=== PATIENT | male | born 1995 | race Caucasian/White ===

== ENCOUNTER 2018-02-08 04:09 | Observation (INO) | payer OTHER, SELFPAY ==
[2018-02-08] VITALS (13 sets, daily range): BP systolic 103–134; BP diastolic 60–72; PULSE 80–110; RESP 16–25; TEMP 36.7–38.1; O2SAT 95–100; BMI 23.0
--- NOTE | 2018-02-08 04:23 | DI.RAD.S_ITS ---
PROCEDURE: XR ACUTE ABDOMEN SERIES INDICATIONS: chest pain, vomiting, abdominal pain TECHNIQUE: One view chest and two views of the abdomen were acquired. COMPARISON: [facility], CT, CT ANGIO CHEST PE PROTOCOL, 02/08/2018, 5:20. [facility], RG, XR CXR 2V, 01/28/2000, 10:15. FINDINGS: Surgical changes and devices: None. Chest: Lungs are clear. Heart size is normal. No pleural effusions. No pneumoperitoneum. Abdomen: Moderate amount of stool in colon. There are a few air-fluid levels in the right lower quadrant. No suspicious calcifications. Visualized solid organ contours appear normal. Bones: No suspicious bony lesions. IMPRESSION: Nonspecific bowel gas pattern. Dictated by: Mauri Cho M.D. on 02/08/2018 at 9:19 Approved by: Mauri Cho M.D. on 02/08/2018 at 9:21
[2018-02-08] MEDS: SODIUM CHLORIDE 0.9% 1,000 ML 1000 ML IV ×2 (04:31→05:52)
[2018-02-08] MEDS: ONDANSETRON 4 MG/2 ML INJ IV (04:31)
--- NOTE | 2018-02-08 04:32 | ED_ITS ---
HPI - Abdominal Pain General Chief Complaint: Abdominal Pain Stated Complaint: nausea/vomiting/fast heart rate feels confused Time Seen by Provider: 02/08/18 04:13 Source: patient and family (mother) Mode of arrival: ambulatory Limitations: no limitations History of Present Illness HPI narrative: This is a 22-year-old male who comes to the emergency department with complaint of chest pain, abdominal pain and vomiting. Patient states that he was working at the gym earlier today. He felt a little bit discomfort in his abdomen after lifting some weights and doing squats. He felt a little bit dizzy. Patient states that Um then this evening they had dinner and then later he started feeling very nauseated, he started vomiting. And is also complaining of some chest pain. Patient states he also feels a little bit short of breath. He states he has felt sweaty. He has not had any fevers recently. He has not had any diarrhea or constipation and has had normal bowel movements. Has not had any changes in urination. He states that he did his normal workout in the gym and did not do anything different or vastly increased in amount of work out. He is visiting his family from college states that it is about an hour and half drive. He states that he is again for the last several months and had not had any dairy or meet until about 3 or 4 days ago and has been drinking and eating that regularly since back home. Patient denies any tobacco, he states occasionally drinks alcohol but none for several months. He states that he does not use any illicit. Denies any sick contacts. Related Data Home Medications Medication Instructions Recorded Confirmed MULTIVITAMIN (FAMILY TABS) 1 tab PO DAILY #0 05/20/11 02/08/18 Fish Oil 2 tab DAILY 02/08/18 02/08/18 Allergies Allergy/AdvReac Type Severity Reaction Status Date / Time amoxicillin [AMOXICILLIN] Allergy Mild Diarrhea/Vo Verified 02/08/18 15:39 miting Review of Systems Review of Systems All systems reviewed & are unremarkable except as noted in HPI and below Constitutional Denies chills, Denies fever(s), Denies headache(s), Denies lethargy, Reports malaise and Denies weakness ENT Ears, Nose, Mouth, and Throat: Denies headache(s) Cardiovascular Reports chest pain, Reports diaphoresis, Denies syncope, Denies pedal edema, Denies irregular heart rhythm, Denies leg edema, Reports lightheadedness, Denies palpitations, Reports dyspnea and Denies orthopnea Respiratory Denies change in phlegm color, Denies chest congestion, Denies cough, Denies excessive phlegm production, Reports dyspnea and Denies wheezing Gastrointestinal Gastrointestinal: Reports abdominal pain, Denies change in bowel habits, Denies diarrhea, Reports nausea, Reports vomiting and Denies hematemesis Genitourinary Denies hematuria, Denies dysuria, Denies flank pain, Denies urinary incontinence and Denies urinary urgency Musculoskeletal Reports back pain (Mild, typical from work out.), Reports muscle cramps, Denies muscle weakness, Denies numbness, Denies tingling and Reports other (Leg also has painful from work out) Integumentary/Breasts Denies rash Neurologic Denies syncope, Denies headache(s), Denies numbness, Denies tingling and Denies weakness Endocrine Denies palpitations Allergic/Immunologic Denies wheezing PFSH Social History household members: family and other Smoking Status: Never smoker alcohol intake: current substance use type: does not use Exam Narrative Exam Narrative: GEN: well nourished, well appearing male, alert and oriented x 3 , patient appears to be in moderate distress. Patient began actively vomiting in the room. HEENT: Atraumatic, pupils are equal round reactive to light, extraocular movements are intact, nares are clear, TMs are clear with no fluid, there is no conjunctival pallor. Throat is clear without any exudates, erythema, tonsillar enlargement or uvular deviation HEART: Slightly tachycardic but regular rate and rhythm without murmur, clicks , rubs. No carotid bruits, pulses are equal in upper and lower extremities LUNGS:Lungs clear to auscultation, no wheezes, rales, crackles, chest moves symmetrically, no tachypnea, no accessory muscle use. ABD:bowel sounds normal, soft, non-tender, no guarding, rebound, rigidity, no masses noted, no hepatosplenomegaly :No CVA tenderness MSCL: Non-tender, no muscle atrophy, muscles strength 5/5 upper and lower extremities, full range of motion, normal gait NEURO:CN 2-12 intact, sensation normal, Initial Vital Signs Initial Vital Signs: Vital Signs Temperature 98.1 F 02/08/18 04:21 Pulse Rate 104 H 02/08/18 04:21 Respiratory Rate 20 02/08/18 04:21 Blood Pressure 125/72 02/08/18 04:21 Pulse Oximetry 98 02/08/18 04:21 Course Orders Ordered: ED Orders 02/08/18 13:12 GI Panel Routine 02/08/18 13:45 Respiratory Panel Stat Acetaminophen (Tylenol) 650 mg PO Q6HR PRN PRN Reason: As Needed for Fever/Mild Pain Last Admin: 02/08/18 13:21 Dose: 650 mg Enoxaparin Sodium (Lovenox) 40 mg SUBCUT DAILY ABHISHEK Sodium Chloride (Normal Saline 0.9%) 1,000 mls @ 100 mls/hr IV CONT ABHISHEK Last Admin: 02/08/18 13:00 Dose: 100 mls/hr Ondansetron HCl (Zofran Odt) 4 mg PO Q8HR PRN PRN Reason: Nausea And Vomiting Last Admin: 02/08/18 13:21 Dose: 4 mg Discontinued Medications Acetaminophen (Tylenol) 975 mg PO NOW ONE Stop: 02/08/18 05:54 Last Admin: 02/08/18 05:55 Dose: 975 mg Sodium Chloride (Normal Saline 0.9%) 1,000 mls @ 1,000 mls/hr IV BOLUS ONE Stop: 02/08/18 05:22 Last Infusion: 02/08/18 05:38 Dose: 0 mls/hr Admin: 02/08/18 04:31 Dose: 1,000 mls/hr Sodium Chloride (Normal Saline 0.9%) 500 mls @ 1,000 mls/hr IV BOLUS ONE Stop: 02/08/18 05:47 Last Admin: 02/08/18 06:52 Dose: Sodium Chloride (Normal Saline 0.9%) 1,000 mls @ 1,000 mls/hr IV BOLUS ONE Stop: 02/08/18 06:26 Last Infusion: 02/08/18 06:37 Dose: 0 mls/hr Admin: 02/08/18 05:52 Dose: 1,000 mls/hr Sodium Chloride (Normal Saline 0.9%) 1,000 mls @ 500 mls/hr IV BOLUS ONE Stop: 02/08/18 08:48 Last Infusion: 02/08/18 07:58 Dose: 0 mls/hr Admin: 02/08/18 06:52 Dose: 500 mls/hr Sodium Chloride (Normal Saline 0.45%) 1,000 mls @ 100 mls/hr IV CONT ABHISHEK Last Admin: 02/08/18 10:15 Dose: 100 mls/hr Morphine Sulfate (Morphine) 4 mg IV NOW ONE Stop: 02/08/18 05:19 Last Admin: 02/08/18 05:52 Dose: 4 mg Ondansetron HCl (Zofran) 4 mg IV NOW ONE Stop: 02/08/18 04:24 Last Admin: 02/08/18 04:31 Dose: 4 mg Vital Signs - 8 hr 02/08/18 13:00 02/08/18 15:00 02/08/18 16:08 Temperature 99.3 F 99.6 F Pulse Rate 96 H 91 H Respiratory Rate 18 18 Blood Pressure 124/60 114/62 Pulse Oximetry 100 99 96 MDM - Abdominal Pain Lab Data Attestation: I reviewed the patient's lab results. Result diagrams: 02/08/18 04:26 02/08/18 04:26 Lab Results 02/08/18 02/08/18 02/08/18 Range/Units 04:26 04:26 04:26 WBC 16.1 H (4.5-11.0) X10^3/uL RBC 5.63 (4.5-5.9) X10^6/uL Hgb 17.3 (13.5-17.5) g/dL Hct 50.2 (41-53) % MCV 89.2 (80-100) fL MCH 30.6 (26-34) PG MCHC 34.4 (30-36) % RDW 12.7 (11.6-14.8) % Plt Count 171 (150-400) X10^3/uL Neut % (Auto) 88.4 H (50-75) % Lymph % (Auto) 7.0 L (25-40) % [place] % (Auto) 4.0 (3-14) % Eos % (Auto) 0.4 L (2-4) % Baso % (Auto) 0.2 (0-2) % Neut # (Auto) 52004 H (3278-1422) /uL PT 11.5 (10.1-12.7) SECONDS INR 1.0 (0.9-1.3) APTT 27 (26.4-36.2) SECONDS D-Dimer 278 H (<230) ng/mL Sodium 141 (137-145) mmol/L Potassium 3.6 (3.4-5.1) mmol/L Chloride 99 (98-107) mmol/L Carbon Dioxide 27 (22-32) mmol/L BUN 22 H (9-20) mg/dL Creatinine 1.10 (0.66-1.25) mg/dL Estimated GFR > 60.0 (>60) mL/min BUN/Creatinine Ratio 20.0 (6-22) Glucose 127 H (70-100) mg/dL Lactate (0.7-2.1) mmol/L Calcium 9.7 (8.4-10.2) mg/dL Magnesium 1.9 (1.6-2.3) mg/dL Total Bilirubin 0.7 (0.2-1.3) mg/dL AST 43 (17-59) IU/L ALT 52 (21-72) IU/L Alkaline Phosphatase 87 (38-126) U/L Total Creatine Kinase 512 H (55-170) U/L CK-MB (CK-2) 4.45 H (<2.37) ng/mL CK-MB (CK-2) Rel Index 0.9 L (1.5-5.0) % Troponin I < 0.012 (0.01-0.034) ng/mL Total Protein 8.1 (6.3-8.2) g/dL Albumin 5.1 H (3.5-5.0) g/dL Globulin 3.0 (1.7-4.1) g/dL Albumin/Globulin Ratio 1.7 (1.0-2.8) Lipase 57 (23-300) U/L Stl C. cayetanensis PCR (Not Detect) Stool Rotavirus (PCR) (Not Detect) Stool Adenovirus (PCR) (Not Detect) Stool Astrovirus (PCR) (Not Detect) Stool Cryptosporidium PCR (Not Detect) Stl E.coli Shiga Tox PCR (Not Detect) St Sh/Enteroin Ecoli PCR (Not Detect) Stool E coli O157 PCR (Not Detect) Stl Enterotoxigenic E PCR (Not Detect) Stool EPEC (PCR) (Not Detect) Stl E. histolytica PCR (Not Detect) Stool Giardia Lamblia PCR (Not Detect) Stool Sapovirus (PCR) (Not Detect) Stl P. shigelloides PCR (Not Detect) St Y.enterocolitica PCR (Not Detect) Stool Vibrio (PCR) (Not Detect) Stl Vibrio cholerae PCR (Not Detect) Stl Enteroaggr Ecoli PCR (Not Detect) Stl Norovirus GI/GII PCR (Not Detect) Urine Opiates Screen (Negative) Ur Oxycodone Screen (Negative) Urine Methadone Screen (Negative) Ur Barbiturates Screen (Negative) U Tricyclic Antidepress (Negative) Ur Phencyclidine Scrn (Negative) Ur Amphetamines Screen (Negative) U Methamphetamines Scrn (Negative) Ur MDMA Scrn (Ecstasy) (Negative) U Benzodiazepines Scrn (Negative) Urine Cocaine Screen (Negative) U Marijuana (THC) Screen (Negative) Chlamy pneumoniae PCR (Not Detect) Adenovirus (PCR) (Not Detect) B.parapertussis DNA PCR (Not Detect) Campylobacter (PCR) (Not Detect) C. difficile Tox (PCR) (Not Detect) Coronavirus OC43 (PCR) (Not Detect) Coronavirus HKU1 (PCR) (Not Detect) Coronavirus 229E (PCR) (Not Detect) Coronavirus NL63 (PCR) (Not Detect) Human Metapneumovir PCR (Not Detect) Influenza Type A (PCR) (Not Detect) Influenza Type B (PCR) (Not Detect) Influenza A & B (PCR) (Negative) M. pneumoniae (PCR) (Not Detect) Parainfluenza 1 (PCR) (Not Detect) Parainfluenza 2 (PCR) (Not Detect) Parainfluenza 3 (PCR) (Not Detect) Parainfluenza 4 (PCR) (Not Detect) RSV (PCR) (Not Detect) Entero/Rhino (PCR) (Not Detect) Salmonella (PCR) (Not Detect) 02/08/18 02/08/18 02/08/18 Range/Units 04:30 05:23 05:55 WBC (4.5-11.0) X10^3/uL RBC (4.5-5.9) X10^6/uL Hgb (13.5-17.5) g/dL Hct (41-53) % MCV (80-100) fL MCH (26-34) PG MCHC (30-36) % RDW (11.6-14.8) % Plt Count (150-400) X10^3/uL Neut % (Auto) (50-75) % Lymph % (Auto) (25-40) % [place] % (Auto) (3-14) % Eos % (Auto) (2-4) % Baso % (Auto) (0-2) % Neut # (Auto) (2267-1672) /uL PT (10.1-12.7) SECONDS INR (0.9-1.3) APTT (26.4-36.2) SECONDS D-Dimer (<230) ng/mL Sodium (137-145) mmol/L Potassium (3.4-5.1) mmol/L Chloride (98-107) mmol/L Carbon Dioxide (22-32) mmol/L BUN (9-20) mg/dL Creatinine (0.66-1.25) mg/dL Estimated GFR (>60) mL/min BUN/Creatinine Ratio (6-22) Glucose (70-100) mg/dL Lactate 1.6 (0.7-2.1) mmol/L Calcium (8.4-10.2) mg/dL Magnesium (1.6-2.3) mg/dL Total Bilirubin (0.2-1.3) mg/dL AST (17-59) IU/L ALT (21-72) IU/L Alkaline Phosphatase (38-126) U/L Total Creatine Kinase (55-170) U/L CK-MB (CK-2) (<2.37) ng/mL CK-MB (CK-2) Rel Index (1.5-5.0) % Troponin I (0.01-0.034) ng/mL Total Protein (6.3-8.2) g/dL Albumin (3.5-5.0) g/dL Globulin (1.7-4.1) g/dL Albumin/Globulin Ratio (1.0-2.8) Lipase (23-300) U/L Stl C. cayetanensis PCR (Not Detect) Stool Rotavirus (PCR) (Not Detect) Stool Adenovirus (PCR) (Not Detect) Stool Astrovirus (PCR) (Not Detect) Stool Cryptosporidium PCR (Not Detect) Stl E.coli Shiga Tox PCR (Not Detect) St Sh/Enteroin Ecoli PCR (Not Detect) Stool E coli O157 PCR (Not Detect) Stl Enterotoxigenic E PCR (Not Detect) Stool EPEC (PCR) (Not Detect) Stl E. histolytica PCR (Not Detect) Stool Giardia Lamblia PCR (Not Detect) Stool Sapovirus (PCR) (Not Detect) Stl P. shigelloides PCR (Not Detect) St Y.enterocolitica PCR (Not Detect) Stool Vibrio (PCR) (Not Detect) Stl Vibrio cholerae PCR (Not Detect) Stl Enteroaggr Ecoli PCR (Not Detect) Stl Norovirus GI/GII PCR (Not Detect) Urine Opiates Screen Negative (Negative) Ur Oxycodone Screen Negative (Negative) Urine Methadone Screen Negative (Negative) Ur Barbiturates Screen Negative (Negative) U Tricyclic Antidepress Negative (Negative) Ur Phencyclidine Scrn Negative (Negative) Ur Amphetamines Screen Negative (Negative) U Methamphetamines Scrn Negative (Negative) Ur MDMA Scrn (Ecstasy) Negative (Negative) U Benzodiazepines Scrn Negative (Negative) Urine Cocaine Screen Negative (Negative) U Marijuana (THC) Screen Negative (Negative) Chlamy pneumoniae PCR (Not Detect) Adenovirus (PCR) (Not Detect) B.parapertussis DNA PCR (Not Detect) Campylobacter (PCR) (Not Detect) C. difficile Tox (PCR) (Not Detect) Coronavirus OC43 (PCR) (Not Detect) Coronavirus HKU1 (PCR) (Not Detect) Coronavirus 229E (PCR) (Not Detect) Coronavirus NL63 (PCR) (Not Detect) Human Metapneumovir PCR (Not Detect) Influenza Type A (PCR) (Not Detect) Influenza Type B (PCR) (Not Detect) Influenza A & B (PCR) Negative (Negative) M. pneumoniae (PCR) (Not Detect) Parainfluenza 1 (PCR) (Not Detect) Parainfluenza 2 (PCR) (Not Detect) Parainfluenza 3 (PCR) (Not Detect) Parainfluenza 4 (PCR) (Not Detect) RSV (PCR) (Not Detect) Entero/Rhino (PCR) (Not Detect) Salmonella (PCR) (Not Detect) 12/24/18 12/24/18 Range/Units 13:12 13:45 WBC (4.5-11.0) X10^3/uL RBC (4.5-5.9) X10^6/uL Hgb (13.5-17.5) g/dL Hct (41-53) % MCV (80-100) fL MCH (26-34) PG MCHC (30-36) % RDW (11.6-14.8) % Plt Count (150-400) X10^3/uL Neut % (Auto) (50-75) % Lymph % (Auto) (25-40) % [place] % (Auto) (3-14) % Eos % (Auto) (2-4) % Baso % (Auto) (0-2) % Neut # (Auto) (1584-3242) /uL PT (10.1-12.7) SECONDS INR (0.9-1.3) APTT (26.4-36.2) SECONDS D-Dimer (<230) ng/mL Sodium (137-145) mmol/L Potassium (3.4-5.1) mmol/L Chloride (98-107) mmol/L Carbon Dioxide (22-32) mmol/L BUN (9-20) mg/dL Creatinine (0.66-1.25) mg/dL Estimated GFR (>60) mL/min BUN/Creatinine Ratio (6-22) Glucose (70-100) mg/dL Lactate (0.7-2.1) mmol/L Calcium (8.4-10.2) mg/dL Magnesium (1.6-2.3) mg/dL Total Bilirubin (0.2-1.3) mg/dL AST (17-59) IU/L ALT (21-72) IU/L Alkaline Phosphatase (38-126) U/L Total Creatine Kinase (55-170) U/L CK-MB (CK-2) (<2.37) ng/mL CK-MB (CK-2) Rel Index (1.5-5.0) % Troponin I (0.01-0.034) ng/mL Total Protein (6.3-8.2) g/dL Albumin (3.5-5.0) g/dL Globulin (1.7-4.1) g/dL Albumin/Globulin Ratio (1.0-2.8) Lipase (23-300) U/L Stl C. cayetanensis PCR Not detected (Not Detect) Stool Rotavirus (PCR) Not detected (Not Detect) Stool Adenovirus (PCR) Not detected (Not Detect) Stool Astrovirus (PCR) Not detected (Not Detect) Stool Cryptosporidium PCR Not detected (Not Detect) Stl E.coli Shiga Tox PCR Not detected (Not Detect) St Sh/Enteroin Ecoli PCR Not detected (Not Detect) Stool E coli O157 PCR Not detected (Not Detect) Stl Enterotoxigenic E PCR Not detected (Not Detect) Stool EPEC (PCR) Not detected (Not Detect) Stl E. histolytica PCR Not detected (Not Detect) Stool Giardia Lamblia PCR Not detected (Not Detect) Stool Sapovirus (PCR) Not detected (Not Detect) Stl P. shigelloides PCR Not detected (Not Detect) St Y.enterocolitica PCR Not detected (Not Detect) Stool Vibrio (PCR) Not detected (Not Detect) Stl Vibrio cholerae PCR Not detected (Not Detect) Stl Enteroaggr Ecoli PCR Not detected (Not Detect) Stl Norovirus GI/GII PCR Detected H (Not Detect) Urine Opiates Screen (Negative) Ur Oxycodone Screen (Negative) Urine Methadone Screen (Negative) Ur Barbiturates Screen (Negative) U Tricyclic Antidepress (Negative) Ur Phencyclidine Scrn (Negative) Ur Amphetamines Screen (Negative) U Methamphetamines Scrn (Negative) Ur MDMA Scrn (Ecstasy) (Negative) U Benzodiazepines Scrn (Negative) Urine Cocaine Screen (Negative) U Marijuana (THC) Screen (Negative) Chlamy pneumoniae PCR Not detected (Not Detect) Adenovirus (PCR) Not detected (Not Detect) B.parapertussis DNA PCR Not detected (Not Detect) Campylobacter (PCR) Not detected (Not Detect) C. difficile Tox (PCR) Not detected (Not Detect) Coronavirus OC43 (PCR) Not detected (Not Detect) Coronavirus HKU1 (PCR) Not detected (Not Detect) Coronavirus 229E (PCR) Not detected (Not Detect) Coronavirus NL63 (PCR) Not detected (Not Detect) Human Metapneumovir PCR Not detected (Not Detect) Influenza Type A (PCR) Not detected (Not Detect) Influenza Type B (PCR) Not detected (Not Detect) Influenza A & B (PCR) (Negative) M. pneumoniae (PCR) Not detected (Not Detect) Parainfluenza 1 (PCR) Not detected (Not Detect) Parainfluenza 2 (PCR) Not detected (Not Detect) Parainfluenza 3 (PCR) Not detected (Not Detect) Parainfluenza 4 (PCR) Not detected (Not Detect) RSV (PCR) Not detected (Not Detect) Entero/Rhino (PCR) Not detected (Not Detect) Salmonella (PCR) Not detected (Not Detect) Point of care testing: Urine Dip Bedside Urine Glucose Negative Bedside Urine Bilirubin + 1 Bedside Urine Ketone - Negative Urine Specific [place] 1.025 Bedside Urine Occult Blood - Negative Bedside Urine pH 6.0 Bedside Urine Protein - Negative Bedside Urine Urobilinogen - Negative Bedside Urine Nitrite - Negative Bedside Urine Leukocytes - Negative Esterase Imaging Data CT PE/abd/pelvis: Radiologist's impression: No evidence of PE, no airspace disease. No aneurysm or dissection. Abdomen shows abdominal aorta is normal caliber. No evidence of colitis, no small-bowel obstruction. Multiple nondistended fluid filled loops of distal small bowel, possible mild wall thickening of multiple loops of small bowel. Appendix identified and normal. ECG Data Attestation: I personally reviewed and interpreted this ECG as follows: Prior ECG tracings: not available for review Interpretation: Sinus rhythm with a rate of 92 DE interval of 140, QRS of 86 and a QTC of 393. Patient has some nonspecific changes. MDM Narrative Medical decision making narrative: Patient continues to have some tachycardia after 1L NS, lactate, blood cultures obtained. Recheck, patient developed fever, tylenol given. Patient's fever resolved. Patient is on his 3rd L of fluid without any improvement in heart rate. Patient 's white count is 16, patient is not anemic, hemoglobin is normal. A troponin is negative although CK and CPK is elevated. Renal function in GI labs are normal. Point of care urine is negative for infection, UDS is negative. Influenza swab was ordered and is also negative. I would expect patient's heart rate did start to improve. He has not continued to have vomiting although he had an additional episode in the ED. Not had any diarrhea thus far. Spoke with Dr. Chow who is the hospitalist accepts. We discussed if he should start antibiotics. Dr. Wright will evaluate the patient 1st prior to starting antibiotics. Discharge Plan Departure Patient Disposition: Admitted as Observation Clinical Impression: Enteritis Discharge Date/Time: 02/08/18 07:59 Interventions: ED Discharge Assessment Last Done: 02/08/18 07:53 Admit Date/Time: 02/08/18 07:53 Admit Provider: Tushar Chow
[2018-02-08 04:36] LABS: Add Manual Diff / Slide Review NO; Basophils Percent Auto 0.2 % (0-2); Eosinophils Percent Auto 0.4 % (2-4); Hematocrit 50.2 % (41-53); Hemoglobin 17.3 g/dL (13.5-17.5); Mean Corpuscular HGB Conc 34.4 % (30-36); Mean Corpuscular Hemoglobin 30.6 PG (26-34); Mean Corpuscular Volume 89.2 fL (80-100); Neutrophils Absolute Auto 14300 /uL (1500-7000); Neutrophils Percent Auto 88.4 % (50-75); Platelet Count 171 X10^3/uL (150-400); Red Blood Cell Count 5.63 X10^6/uL (4.5-5.9); Red Cell Distribution Width 12.7 % (11.6-14.8); White Blood Cell Count 16.1 X10^3/uL (4.5-11.0)
[2018-02-08 04:41] LABS: Prothrombin Time 11.5 SECONDS (10.1-12.7)
[2018-02-08 04:43] LABS: Alanine Aminotransferase 52 IU/L (21-72); Albumin 5.1 g/dL (3.5-5.0); Albumin Globulin Ratio 1.7 (1.0-2.8); Alkaline Phosphatase 87 U/L (38-126); Aspartate Aminotransferase 43 IU/L (17-59); Bilirubin Total 0.7 mg/dL (0.2-1.3); Blood Urea Nitrogen 22 mg/dL (9-20); Calcium 9.7 mg/dL (8.4-10.2); Carbon Dioxide 27 mmol/L (22-32); Chloride 99 mmol/L (98-107); Creatine Kinase 512 U/L (55-170); Estimated Glomerular Filt Rate > 60.0 mL/min (>60); Glucose 127 mg/dL (70-100); HEMOLYSIS < 15 (0-50); Lipase 57 U/L (23-300); Potassium 3.6 mmol/L (3.4-5.1); Sodium 141 mmol/L (137-145); Total Protein 8.1 g/dL (6.3-8.2)
[2018-02-08 04:44] LABS: D Dimer 278 ng/mL (<230); PTT Partial Thromboplastin Tim 27 SECONDS (26.4-36.2)
[2018-02-08 04:49] LABS: Urine Amphetamines Negative (Negative); Urine Barbiturates Negative (Negative); Urine Benzodiazepines Negative (Negative); Urine Cocaine Negative (Negative); Urine MDMA Negative (Negative); Urine Methadone Negative (Negative); Urine Methamphetamines Negative (Negative); Urine Morphine/Opi cutoff 2000 Negative (Negative); Urine Oxycodone Negative (Negative); Urine Phencyclidine Negative (Negative); Urine Tetrahydrocannabinol Negative (Negative); Urine Tricyclic Antidepressant Negative (Negative)
[2018-02-08 04:56] LABS: Troponin I < 0.012 ng/mL (0.01-0.034)
[2018-02-08 04:58] LABS: CKMB % Relative Index 0.9 % (1.5-5.0); Creatine Kinase MB 4.45 ng/mL (<2.37)
--- NOTE | 2018-02-08 05:18 | DI.CT.S_ITS ---
PROCEDURE: CT ABDOMEN PELVIS W CON INDICATIONS: chest pain/abd pain, tachycardia, sob TECHNIQUE: After the administration of intravenous contrast, 5 mm thick sections acquired from the diaphragm to the symphysis. 5 mm coronal and sagittal reformats were acquired. For radiation dose reduction, the following was used: automated exposure control, adjustment of mA and/or kV according to patient size. COMPARISON: None. FINDINGS: Image quality: Excellent. ABDOMEN: Lung bases: Lung bases are clear. Heart size is normal. Solid organs: Liver is normal in size and enhancement. Gallbladder is within normal limits. Biliary system is non dilated. Pancreas enhances normally. Spleen is normal in size and enhancement. No adrenal nodules. Kidneys demonstrate normal size and enhancement, without hydronephrosis. Peritoneum and bowel: Colon loops demonstrate normal wall thickness and caliber. The fluid filled, mildly distended multiple loops of small bowel noted. Fluid-filled loops of small bowel have mild circumferential wall thickening. The appendix is not visualized. No free fluid or air. Nodes and vessels: No retroperitoneal or mesenteric adenopathy by size criteria. Aorta and inferior vena cava are normal in size. Miscellaneous: No ventral hernias. PELVIS: Genitourinary: Bladder wall thickness is normal. Miscellaneous: No inguinal hernias or adenopathy. Bones: No suspicious bony lesions. No vertebral body compression fractures. IMPRESSION: 1. Multiple, mildly distended, fluid-filled loops of small bowel concerning for enteritis. 2. The appendix is not definitely visualized. Early manifestation of appendicitis cannot be excluded. 3. No free fluid or air. Dictated by: Kristin Montenegro MD, PhD on 02/08/2018 at 7:32 Approved by: Kristin Montenegro MD, PhD on 02/08/2018 at 7:37
--- NOTE | 2018-02-08 05:18 | DI.CT.S_ITS ---
PROCEDURE: CT ANGIO CHEST PE PROTOCOL INDICATIONS: chest pain, abd, sob, tachycardia TECHNIQUE: After the administration of intravenous contrast, 2 mm thick sections acquired from the pulmonary apices to the posterior costophrenic angles. 3-dimensional maximum intensity projection (MIP) coronal and sagittal reformats were then acquired through the thorax. For radiation dose reduction, the following was used: automated exposure control, adjustment of mA and/or kV according to patient size. COMPARISON: None. FINDINGS: Image quality: Limited by patient motion artifact. Pulmonary arteries: Pulmonary arteries are normal in size, and demonstrate no intraluminal filling defects to suggest central pulmonary embolism. Lungs and pleura: Lungs are clear. No pleural effusions or pneumothorax. Central and peripheral airways are patent. Mediastinum: Heart size is normal, without pericardial effusion. No mediastinal or hilar adenopathy. Thoracic aorta is normal in caliber and enhancement. Esophagus is normal in caliber, without hiatal hernia. Bones and chest wall: No suspicious bony lesions. Ribs and thoracic spine appear intact throughout. Thyroid gland is within normal limits where visualized. No axillary or supraclavicular adenopathy. Abdomen: Visualized upper abdominal solid organs appear normal in the early arterial phase of enhancement. IMPRESSION: 1. No pulmonary embolus. 2. No lung consolidation. Dictated by: Kristin Montenegro MD, PhD on 02/08/2018 at 7:28 Approved by: Kristin Montenegro MD, PhD on 02/08/2018 at 7:30
[2018-02-08 05:44] LABS: Lactate (Lactic Acid) 1.6 mmol/L (0.7-2.1)
[2018-02-08] MEDS: MORPHINE 4 MG/ML INJ IV (05:52)
[2018-02-08] MEDS: ACETAMINOPHEN 325 MG TABLET 975 MG PO (05:55)
[2018-02-08 06:28] LABS: Influenza A and B by PCR Rapid Negative (Negative)
[2018-02-08] MEDS: SODIUM CHLORIDE 0.9% 1,000 ML 500 ML IV (06:52)
--- NOTE | 2018-02-08 09:18 | P.HP_ITS ---
History of Present Illness Date Patient Seen: 02/08/18 Chief complaint: nausea/vomiting/fast heart rate feels confused Narrative: Bipin Lane is a 22-year-old male with a past medical history significant for asthma as a child who presented to [facility] ED for abrupt onset vomiting. 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 He felt a little bit dizzy. Then yesterday evening he started feeling very nauseated after dinner and began vomiting at approximately 1:30 a.m. He states that he was gasping for air, had chest pressure and palpitations prompting him to go to the emergency department. He has never had this before. He denies sick contacts. He denies travel out of the country other than [place] several months ago. He recently went to [place] where he was around crowds of people. He normally consumes a vegan diet but has recently ate chicken and fish. He denies exposure to turtles. He endorses headache, sore throat, palpitations, left lower quadrant abdominal pain that has now resolved, fever, chills, nausea and vomiting. He has not had any bowel movements. He denies previous diarrhea or constipation. Has not had any changes in urination. He states that he did his normal workout in the gym and did not do anything different or vastly increased in amount of work out. He is visiting his family from college states that it is about an hour and half drive. Patient denies any tobacco, he states occasionally drinks alcohol but none for several months. He states that he does not use any illicit drugs. CT abdomen and pelvis with contrast was performed in the ED and he was found to have enteritis for which he is being admitted for further workup. Patient History Medical History Asthma (Acute) Surgical History No history of previous surgery (Acute) Family & Social History Social History: household members family,other Prior Living Arrangements House Safety & Behavioral: Feels Safe in Current Yes Environment Been Physically Hurt or No Threatened By a Person Suicidal Ideation Description None Tobacco & Substance use: Smoking Status Never smoker alcohol intake current alcohol intake frequency social 1-2x month; anywhere from 1 to 5 or 6 drinks Substance Use Type does not use Meds Home Medications Medication Instructions Recorded Confirmed Type MULTIVITAMIN (FAMILY TABS) 1 tab PO DAILY #0 05/20/11 02/08/18 History Fish Oil 2 tab DAILY 02/08/18 02/08/18 History ondansetron HCl [Zofran] 4 mg PO BID-TID PRN #20 tab 02/09/18 Rx Allergies Allergy/AdvReac Type Severity Reaction Status Date / Time amoxicillin [AMOXICILLIN] Allergy Mild Diarrhea/Vo Verified 02/08/18 15:39 miting Review of Systems Review of Systems A 10 system comprehensive review of systems was conducted with the patient and found to be negative except as above in the History of Present Illness. Exam Vital Signs (past 8 hours): - 02/08/18 04:21 02/08/18 05:48 02/08/18 06:00 Temperature 98.1 F 100.5 F H Pulse Rate 104 H 110 H Respiratory Rate 20 25 H Blood Pressure 125/72 Blood Pressure [Left Arm] 134/71 Pulse Oximetry 98 99 02/08/18 06:30 02/08/18 06:37 02/08/18 07:00 Temperature 99.5 F 99.5 F Pulse Rate 105 H 102 H Respiratory Rate 16 17 Blood Pressure Blood Pressure [Left Arm] 123/64 125/62 Pulse Oximetry 98 97 02/08/18 07:47 Temperature Pulse Rate 102 H Respiratory Rate 16 Blood Pressure Blood Pressure [Left Arm] 120/71 Pulse Oximetry 97 Oxygen Delivery Method Room Air Narrative Exam Narrative: General: Young male sitting in bed and in no acute distress, mildly diaphoretic , appears slightly uncomfortable and ill. Appropriately interactive. HEENT: Normocephalic, atraumatic. External ears without defect. Pupils equal, round, and reactive to light. Anicteric sclerae, moist conjunctivae, and no lid lag. Oropharynx free of erythema and cobble stoning with moist mucosa. Neck: Supple with full range of motion. No lymphadenopathy or thyromegaly. Cardiovascular: Regular rhythm, mild tachycardia, without murmurs, rubs, or gallops appreciated. Pulmonary: Clear to auscultation bilaterally without crackles, wheezes, or rhonchi. Normal respiratory effort with no use of accessory muscles. Abdomen: Soft, bowel sounds present, nontender, nondistended. No guarding. No hepatosplenomegaly or masses appreciated. Extremities: No clubbing, cyanosis, or edema. Skin: Normal temperature, turgor, and texture; no rash, ulcers, or subcutaneous nodules appreciated. Neurological: Cranial nerves grossly intact. Psychiatric: Normal mood and affect. Alert and oriented to person, place, and time. Objective Labs Result Diagrams: 02/09/18 04:46 02/09/18 04:46 Labs: Laboratory Results - last 24 hr 02/08/18 02/08/18 02/08/18 04:26 04:26 04:26 WBC 16.1 H RBC 5.63 Hgb 17.3 Hct 50.2 MCV 89.2 MCH 30.6 MCHC 34.4 RDW 12.7 Plt Count 171 Neut % (Auto) 88.4 H Lymph % (Auto) 7.0 L [place] % (Auto) 4.0 Eos % (Auto) 0.4 L Baso % (Auto) 0.2 Neut # (Auto) 06702 H PT 11.5 INR 1.0 APTT 27 D-Dimer 278 H Sodium 141 Potassium 3.6 Chloride 99 Carbon Dioxide 27 BUN 22 H Creatinine 1.10 Estimated GFR > 60.0 BUN/Creatinine Ratio 20.0 Glucose 127 H Lactate Calcium 9.7 Total Bilirubin 0.7 AST 43 ALT 52 Alkaline Phosphatase 87 Total Creatine Kinase 512 H CK-MB (CK-2) 4.45 H CK-MB (CK-2) Rel Index 0.9 L Troponin I < 0.012 Total Protein 8.1 Albumin 5.1 H Globulin 3.0 Albumin/Globulin Ratio 1.7 Lipase 57 Urine Opiates Screen Ur Oxycodone Screen Urine Methadone Screen Ur Barbiturates Screen U Tricyclic Antidepress Ur Phencyclidine Scrn Ur Amphetamines Screen U Methamphetamines Scrn Ur MDMA Scrn (Ecstasy) U Benzodiazepines Scrn Urine Cocaine Screen U Marijuana (THC) Screen Influenza A & B (PCR) 02/08/18 02/08/18 02/08/18 04:30 05:23 05:55 WBC RBC Hgb Hct MCV MCH MCHC RDW Plt Count Neut % (Auto) Lymph % (Auto) [place] % (Auto) Eos % (Auto) Baso % (Auto) Neut # (Auto) PT INR APTT D-Dimer Sodium Potassium Chloride Carbon Dioxide BUN Creatinine Estimated GFR BUN/Creatinine Ratio Glucose Lactate 1.6 Calcium Total Bilirubin AST ALT Alkaline Phosphatase Total Creatine Kinase CK-MB (CK-2) CK-MB (CK-2) Rel Index Troponin I Total Protein Albumin Globulin Albumin/Globulin Ratio Lipase Urine Opiates Screen Negative Ur Oxycodone Screen Negative Urine Methadone Screen Negative Ur Barbiturates Screen Negative U Tricyclic Antidepress Negative Ur Phencyclidine Scrn Negative Ur Amphetamines Screen Negative U Methamphetamines Scrn Negative Ur MDMA Scrn (Ecstasy) Negative U Benzodiazepines Scrn Negative Urine Cocaine Screen Negative U Marijuana (THC) Screen Negative Influenza A & B (PCR) Negative Assessment & Plan Plan: Assessment/Plan Narrative: Bipin Lane is a 22-year-old male with a past medical history significant for asthma as a child who presented to [facility] ED for abrupt onset vomiting and admitted for sepsis and enteritis. 1. Acute sepsis, present on admission. Active. -Patient presented with abdominal pain, vomiting, and chest pressure with leukocytosis of 16.1, tachycardic 104, febrile 100.5?F. -Early goal-directed therapy med includin L IV fluid bolus and NS at 100 mL/hr. Antibiotics were not started as this may precipitate a Endo toxin release and certain types of enteritis/colitis. 2. Acute enteritis, present on admission. Active. -Ordered stool PCR, pending. -Ordered respiratory viral PCR, pending. -Will hold off on antibiotics as this may precipitate endo toxin release in certain types of enteritis/colitis. -Continue IV fluids with NS at 100 mL/hr. -Avoid antidiarrheals. -Ordered antiemetics as necessary. Patient is admitted under inpatient status with expected length of stay greater than 2 midnights due to severity of presenting symptoms, risk of adverse event, and complexity of treatment plan.
[2018-02-08] MEDS: SODIUM CHLORIDE 0.45% 1,000 ML 100 ML IV (10:15)
[2018-02-08] MEDS: SODIUM CHLORIDE 0.9% 1,000 ML 100 ML IV ×2 (13:00→22:01)
[2018-02-08] MEDS: ACETAMINOPHEN 325 MG TABLET 650 MG PO (13:21)
[2018-02-08] MEDS: ONDANSETRON 4 MG ODT PO (13:21)
[2018-02-08 14:20] LABS: Magnesium 1.9 mg/dL (1.6-2.3)
[2018-02-08 14:52] LABS: Adenovirus F 40/41 Not Detected (Not Detect); Astrovirus Not Detected (Not Detect); Campylobacter Not Detected (Not Detect); Clostridium difficile toxin AB Not Detected (Not Detect); Cryptosporidium Not Detected (Not Detect); Cyclospora cayetanensis Not Detected (Not Detect); Entamoeba histolytica Not Detected (Not Detect); Enteroaggregative E.coli Not Detected (Not Detect); Enteropathogenic E.coli Not Detected (Not Detect); Enterotoxigenic E.coli It/st Not Detected (Not Detect); Giardia lamblia Not Detected (Not Detect); Norovirus GI/GII Detected (Not Detect); Plesiomonsa shigelloides Not Detected (Not Detect); Rotavirus A Not Detected (Not Detect); Salmonella Not Detected (Not Detect); Sapovirus Not Detected (Not Detect); Shiga-like toxin-prod E.coli Not Detected (Not Detect); Shigella/Enteroinvasive E.coli Not Detected (Not Detect); Vibrio Not Detected (Not Detect); Vibrio cholerae Not Detected (Not Detect); Yersinia enterocolitica Not Detected (Not Detect)
[2018-02-08 15:08] LABS: Adenovirus Not Detected (Not Detect); Bordetella pertussis Not Detected (Not Detect); Chlamydophila pneumoniae Not Detected (Not Detect); Coronavirus 229E Not Detected (Not Detect); Coronavirus HKU1 Not Detected (Not Detect); Coronavirus NL 63 Not Detected (Not Detect); Coronavirus OC43 Not Detected (Not Detect); Human Metapneumovirus Not Detected (Not Detect); Human Rhinovirus/Enterovirus Not Detected (Not Detect); Influenza A Not Detected (Not Detect); Influenza B Not Detected (Not Detect); Mycoplasma pneumoniae Not Detected (Not Detect); Parainfluenza Virus 1 Not Detected (Not Detect); Parainfluenza Virus 2 Not Detected (Not Detect); Parainfluenza Virus 3 Not Detected (Not Detect); Parainfluenza Virus 4 Not Detected (Not Detect); Respiratory Syncytial Virus Not Detected (Not Detect)
--- NOTE | 2018-02-08 16:24 | PC.NURSE ---
Notified by lab of positive GI panel for norovirus. Left message for Dr. Romeo regarding results. Isolation (contact and droplet) initiated. Report given to evening shift RN to assume care.
[2018-02-09 00:45] VITALS: O2SAT 95
[2018-02-09 04:00] VITALS: BP 114/49; PULSE 72; RESP 16; TEMP 36.7; O2SAT 96
[2018-02-09 05:43] LABS: Add Manual Diff / Slide Review NO; Basophils Percent Auto 0.2 % (0-2); Eosinophils Percent Auto 0.8 % (2-4); Hematocrit 40.1 % (41-53); Lymphocytes Percent Auto 16.6 % (25-40); Mean Corpuscular HGB Conc 34.9 % (30-36); Mean Corpuscular Hemoglobin 31.1 PG (26-34); Mean Corpuscular Volume 89.2 fL (80-100); Monocytes Percent Auto 9.8 % (3-14); Neutrophils Absolute Auto 4000 /uL (1500-7000); Neutrophils Percent Auto 72.6 % (50-75); Platelet Count 100 X10^3/uL (150-400); Red Cell Distribution Width 12.9 % (11.6-14.8); White Blood Cell Count 5.5 X10^3/uL (4.5-11.0)
[2018-02-09 05:51] LABS: Alanine Aminotransferase 44 IU/L (21-72); Albumin 3.1 g/dL (3.5-5.0); Albumin Globulin Ratio 1.5 (1.0-2.8); Alkaline Phosphatase 52 U/L (38-126); Aspartate Aminotransferase 28 IU/L (17-59); BUN Creatinine Ratio 11.1 (6-22); Bilirubin Total 0.4 mg/dL (0.2-1.3); Blood Urea Nitrogen 10 mg/dL (9-20); Calcium 8.1 mg/dL (8.4-10.2); Carbon Dioxide 27 mmol/L (22-32); Chloride 104 mmol/L (98-107); Estimated Glomerular Filt Rate > 60.0 mL/min (>60); Globulin 2.1 g/dL (1.7-4.1); Glucose 89 mg/dL (70-100); HEMOLYSIS < 15 (0-50); Potassium 3.7 mmol/L (3.4-5.1); Sodium 141 mmol/L (137-145); Total Protein 5.2 g/dL (6.3-8.2)
[2018-02-09 06:07] LABS: Procalcitonin 0.26 ng/mL (<0.5)
[2018-02-09 07:00] VITALS: O2SAT 98
--- NOTE | 2018-02-09 07:31 | P.DS_ITS ---
History of Present Illness Date Patient Seen: 02/08/18 Chief complaint: nausea/vomiting/fast heart rate feels confused Narrative: Bipin Lane is a 22-year-old male with a past medical history significant for asthma as a child who presented to [facility] ED for abrupt onset vomiting. 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 He felt a little bit dizzy. Then yesterday evening he started feeling very nauseated after dinner and began vomiting at approximately 1:30 a.m. He states that he was gasping for air, had chest pressure and palpitations prompting him to go to the emergency department. He has never had this before. He denies sick contacts. He denies travel out of the country other than [place] several months ago. He recently went to [place] where he was around crowds of people. He normally consumes a vegan diet but has recently ate chicken and fish. He denies exposure to turtles. He endorses headache, sore throat, palpitations, left lower quadrant abdominal pain that has now resolved, fever, chills, nausea and vomiting. He has not had any bowel movements. He denies previous diarrhea or constipation. Has not had any changes in urination. He states that he did his normal workout in the gym and did not do anything different or vastly increased in amount of work out. He is visiting his family from college states that it is about an hour and half drive. Patient denies any tobacco, he states occasionally drinks alcohol but none for several months. He states that he does not use any illicit drugs. CT abdomen and pelvis with contrast was performed in the ED and he was found to have enteritis for which he is being admitted for further workup. Discharge Providers Date of admission: 02/08/18 07:53 Discharge provider: Acacia Romeo DO Discharge Date: 02/09/18 Summary Discharge Diagnosis: 1. Acute sepsis, present on admission. Active. 2. Acute enteritis secondary to norovirus, present on admission. Resolving. Hospital Course: Bipin Lane is a 22-year-old male with a past medical history significant for asthma as a child who presented to [facility] ED for abrupt onset vomiting and admitted for sepsis and enteritis. The patient was septic upon admission with leukocytosis, tachycardia, fever, and source being small bowel infection. The patient was given 3L in the ED and started on IV fluids NS at 100 mL an hour. He was not started on empiric antibiotics due to the possibility of bacterial enteritis and precipitation of endotoxin release. Over the course of the afternoon and night he rapidly improved. He continues to have intermittent nausea that is controlled with Zofran. He is tolerating clear liquids and has been able to slowly advance his diet. He is being discharged home in stable condition. 1. Acute sepsis, present on admission. Resolved. -Patient presented with abdominal pain, vomiting, and chest pressure with leukocytosis (16.1), tachycardia (104), febrile (100.5?F) with source of enteritis. -Early goal-directed therapy med includinL IV fluids. Antibiotics were not started as it would precipitate a endotoxin release in certain types of enteritis/colitis. 2. Acute enteritis secondary to norovirus, present on admission. Resolving. -Stool PCR positive for norovirus. -Respiratory viral PCR negative. -Did not start empiric antibiotics as it would precipitate endotoxin release in certain types of bacterial enteritis/colitis. -ContinuedIV fluids with NS at 100 mL/hr. -Avoided antidiarrheals. -Continued antiemetics as necessary and discharged with Rx. -Started clear liquid diet and advanced as tolerated. Status at Discharge Functional status at discharge: independent ambulation Overall status at discharge: patient is back to baseline Exam Vital Signs (past 8 hours): - 02/08/18 23:55 02/09/18 00:45 02/09/18 04:00 Temperature 99.4 F 98.0 F Pulse Rate 80 72 Respiratory Rate 16 16 Blood Pressure 103/64 114/49 L Pulse Oximetry 95 95 96 Oxygen Delivery Method Room Air Oxygen Flow Rate 0 Narrative Exam Narrative: General: Young male sitting in bed and in no acute distress, appears comfortable, appropriately interactive. HEENT: Normocephalic, atraumatic. External ears without defect. Pupils equal, round, and reactive to light. Anicteric sclerae, moist conjunctivae, and no lid lag. Oropharynx free of erythema and cobble stoning with moist mucosa. Neck: Supple with full range of motion. No lymphadenopathy or thyromegaly. Cardiovascular: Regular rhythm and rate without murmurs, rubs, or gallops appreciated. Pulmonary: Clear to auscultation bilaterally without crackles, wheezes, or rhonchi. Normal respiratory effort with no use of accessory muscles. Abdomen: Soft, bowel sounds present, nontender, nondistended. No guarding. No hepatosplenomegaly or masses appreciated. Extremities: No clubbing, cyanosis, or edema. Skin: Normal temperature, turgor, and texture; no rash, ulcers, or subcutaneous nodules appreciated. Neurological: Cranial nerves grossly intact. Psychiatric: Normal mood and affect. Alert and oriented to person, place, and time. Objective Labs Result Diagrams: 02/09/18 04:46 02/09/18 04:46 Labs: Laboratory Results - last 24 hr 02/08/18 02/08/18 02/08/18 04:26 13:12 13:45 WBC RBC Hgb Hct MCV MCH MCHC RDW Plt Count Neut % (Auto) Lymph % (Auto) Early % (Auto) Eos % (Auto) Baso % (Auto) Neut # (Auto) Sodium 141 Potassium 3.6 Chloride 99 Carbon Dioxide 27 BUN 22 H Creatinine 1.10 Estimated GFR > 60.0 BUN/Creatinine Ratio 20.0 Glucose 127 H Calcium 9.7 Magnesium 1.9 Total Bilirubin 0.7 AST 43 ALT 52 Alkaline Phosphatase 87 Total Creatine Kinase 512 H CK-MB (CK-2) 4.45 H CK-MB (CK-2) Rel Index 0.9 L Troponin I < 0.012 Total Protein 8.1 Albumin 5.1 H Globulin 3.0 Albumin/Globulin Ratio 1.7 Lipase 57 Procalcitonin Stl C. cayetanensis PCR Not detected Stool Rotavirus (PCR) Not detected Stool Adenovirus (PCR) Not detected Stool Astrovirus (PCR) Not detected Stool Cryptosporidium PCR Not detected Stl E.coli Shiga Tox PCR Not detected St Sh/Enteroin Ecoli PCR Not detected Stool E coli O157 PCR Not detected Stl Enterotoxigenic E PCR Not detected Stool EPEC (PCR) Not detected Stl E. histolytica PCR Not detected Stool Giardia Lamblia PCR Not detected Stool Sapovirus (PCR) Not detected Stl P. shigelloides PCR Not detected St Y.enterocolitica PCR Not detected Stool Vibrio (PCR) Not detected Stl Vibrio cholerae PCR Not detected Stl Enteroaggr Ecoli PCR Not detected Stl Norovirus GI/GII PCR Detected H Chlamy pneumoniae PCR Not detected Adenovirus (PCR) Not detected B.parapertussis DNA PCR Not detected Campylobacter (PCR) Not detected C. difficile Tox (PCR) Not detected Coronavirus OC43 (PCR) Not detected Coronavirus HKU1 (PCR) Not detected Coronavirus 229E (PCR) Not detected Coronavirus NL63 (PCR) Not detected Human Metapneumovir PCR Not detected Influenza Type A (PCR) Not detected Influenza Type B (PCR) Not detected M. pneumoniae (PCR) Not detected Parainfluenza 1 (PCR) Not detected Parainfluenza 2 (PCR) Not detected Parainfluenza 3 (PCR) Not detected Parainfluenza 4 (PCR) Not detected RSV (PCR) Not detected Entero/Rhino (PCR) Not detected Salmonella (PCR) Not detected 02/09/18 02/09/18 02/09/18 04:46 04:46 04:46 WBC 5.5 D RBC 4.50 Hgb 14.0 Hct 40.1 L MCV 89.2 MCH 31.1 MCHC 34.9 RDW 12.9 Plt Count 100 L Neut % (Auto) 72.6 Lymph % (Auto) 16.6 L Early % (Auto) 9.8 Eos % (Auto) 0.8 L Baso % (Auto) 0.2 Neut # (Auto) 4000 Sodium 141 Potassium 3.7 Chloride 104 Carbon Dioxide 27 BUN 10 Creatinine 0.90 Estimated GFR > 60.0 BUN/Creatinine Ratio 11.1 Glucose 89 Calcium 8.1 L Magnesium Total Bilirubin 0.4 AST 28 ALT 44 Alkaline Phosphatase 52 Total Creatine Kinase CK-MB (CK-2) CK-MB (CK-2) Rel Index Troponin I Total Protein 5.2 L Albumin 3.1 L Globulin 2.1 Albumin/Globulin Ratio 1.5 Lipase Procalcitonin 0.26 Stl C. cayetanensis PCR Stool Rotavirus (PCR) Stool Adenovirus (PCR) Stool Astrovirus (PCR) Stool Cryptosporidium PCR Stl E.coli Shiga Tox PCR St Sh/Enteroin Ecoli PCR Stool E coli O157 PCR Stl Enterotoxigenic E PCR Stool EPEC (PCR) Stl E. histolytica PCR Stool Giardia Lamblia PCR Stool Sapovirus (PCR) Stl P. shigelloides PCR St Y.enterocolitica PCR Stool Vibrio (PCR) Stl Vibrio cholerae PCR Stl Enteroaggr Ecoli PCR Stl Norovirus GI/GII PCR Chlamy pneumoniae PCR Adenovirus (PCR) B.parapertussis DNA PCR Campylobacter (PCR) C. difficile Tox (PCR) Coronavirus OC43 (PCR) Coronavirus HKU1 (PCR) Coronavirus 229E (PCR) Coronavirus NL63 (PCR) Human Metapneumovir PCR Influenza Type A (PCR) Influenza Type B (PCR) M. pneumoniae (PCR) Parainfluenza 1 (PCR) Parainfluenza 2 (PCR) Parainfluenza 3 (PCR) Parainfluenza 4 (PCR) RSV (PCR) Entero/Rhino (PCR) Salmonella (PCR) Discharge Plan Discharge Plan Patient Disposition: Home Discharge comment: You are being discharged home. Please follow-up with your primary care physician within 1 week for hospital follow-up. Use good hand hygiene and contact precautions. Stay well hydrated, take it easy, and listen to your body. You may advance your diet as tolerated. You were prescribed a medication called Zofran to take every 4-6 hours as needed for nausea. Discharge Med Rec/Prescriptions Prescriptions: New ondansetron HCl [Zofran] 4 mg tablet 4 mg PO BID-TID PRN (Reason: nausea and vomiting) Qty: 20 RF: 0 Continue MULTIVITAMIN (FAMILY TABS) 1 tab PO DAILY Qty: 0 RF: 0 Fish Oil capsule 2 tab DAILY RF: 0 Provider Discharge Instructions Diet: Diet as Tolerated Activity: Activity as tolerated Skin/Wound/Dressing Care Report to your healthcare provider any signs of infection, such as:: chills, fever and increased pain Visit Report/Discharge Packet Instructions: Norovirus Infection, How To Wash Your Hands Visit Report Forms: Stroke Signs & Symptoms Discharge Data Attending Provider: Tushar Chow Admit Date/Time: 02/08/18 07:53
[2018-02-09] MEDS: SODIUM CHLORIDE 0.9% 1,000 ML 100 ML IV (07:52)
[2018-02-09 08:00] VITALS: BP 111/55; PULSE 66; RESP 16; TEMP 36.6; O2SAT 97
--- NOTE | 2018-02-09 12:37 | CM.IDA ---
Home w/very supportive family and close outpt f/u, no needs per Dr Romeo. JW
== END 2018-02-09 11:00 | disposition home or self-care (01) ==
LOC: ED 06:49 → AC 07:53
PROVIDERS: Internal Medicine; Admitting Provider Internal Medicine; Emergency Provider Emergency Medicine; Visit Provider Internal Medicine
DX: A41.89 Other specified sepsis (principal); A08.11 Acute gastroenteropathy due to Norwalk agent; R10.9 Unspecified abdominal pain; J45.909 Unspecified asthma, uncomplicated
CPT/HCPCS: 36415; 36591; 71275; 74022; 74177; 80053; 80305; 81003; 82550; 82553; 83605; 83690; 83735; 84145; 84484; 85025; 85379; 85610; 85730; 87040; 87177; 87400; 87507; 87633; 93005; 94762; 96361; 96374; 96375; 99284; 99285; G0378; J2270; J2405; J7050; Q9967

== ENCOUNTER → 2019-06-11 09:02 | Outpatient (CLI) | payer OTHER, SELFPAY ==
[2018-08-18 10:48] VITALS: BMI 23.0
[2019-06-15 11:08] LABS: COVID19 Sendout Not Detected (Not Detected)
== END ==
PROVIDERS: Visit Provider Registered Nurse
DX: R05 Cough (principal)
CPT/HCPCS: 87635

== ENCOUNTER → 2019-07-15 11:42 | Outpatient (CLI) | payer OTHER, SELFPAY ==
[2018-08-18 10:48] VITALS: BMI 23.0
--- NOTE | 2019-07-15 11:46 | DI.CT.S_ITS ---
PROCEDURE: CT SINUS SCREEN WO CON INDICATIONS: Frequent sinus infections w/ pain TECHNIQUE: Noncontrast 3.0 mm axial images acquired from the frontal sinuses to the mid-sella, with coronal and sagittal reformats. For radiation dose reduction, the following was used: automated exposure control, adjustment of mA and/or kV according to patient size. COMPARISON: None. FINDINGS: Image quality: Excellent. Maxillary Sinuses: No bony remodeling or destruction. Right maxillary sinus is clear. Moderate left inferior maxillary sinus mucosal thickening. Ethmoid Air Cells: No bony remodeling or destruction. Sinuses are clear. Sphenoid Sinuses: No bony remodeling or destruction. Sinuses are clear. Frontal Sinuses: No bony remodeling or destruction. Right frontal sinus is clear. Severe left frontal sinus mucosal thickening. Ostiomeatal Complexes: Ostiomeatal complexes are patent. No Shukri cells. Miscellaneous: Visualized intra-orbital contents are normal. No chantale bullosa or paradoxical turbinate curvature. No nasal septal deviation. IMPRESSION: 1. Left frontal and maxillary sinus mucosal disease as described above. Dictated by: Keisha Mcghee M.D. on 07/15/2019 at 13:30 Approved by: Keisha Mcghee M.D. on 07/15/2019 at 13:32
== END ==
PROVIDERS: PCP Family Medicine; Referring Provider Family Medicine; Visit Provider Family Medicine
DX: J32.8 Other chronic sinusitis (principal)
CPT/HCPCS: 70486

== ENCOUNTER 2020-02-09 12:16 | Emergency (ER) | payer OTHER, SELFPAY ==
[2018-08-18 10:48] VITALS: BMI 23.0
[2020-02-09 12:20] VITALS: BP 145/67; PULSE 66; RESP 14; TEMP 36.8; O2SAT 100; BMI 25.1
--- NOTE | 2020-02-09 12:55 | ED.URI ---
HPI - URI/Sore Throat <CALIN BluntP - Last Filed: 02/09/20 13:34> General Chief Complaint: Upper Respiratory Symptoms Stated Complaint: wants a covid test Time Seen by Provider: 02/09/20 12:29 Source: patient Mode of arrival: Ambulatory Limitations: no limitations History of Present Illness HPI Narrative: This is a 24-year-old male, nonsmoker, has no contributory medical history presents to ED with concerns for COVID illness. Patient reports nausea, chills, congestion, headache and he had returned from [place] 4 days ago by air travel. Patient denies known exposure to COVID infection. Patient denies body aches, cough, short of breath, diarrhea, loss of smell or taste. Patient is able to tolerate fluids without vomiting. Patient is to travel back to [place] in a few days and then he will self quarantine for 2 weeks. Related Data Home Medications Medication Instructions Recorded Confirmed MULTIVITAMIN (FAMILY TABS) 1 tab PO DAILY #0 05/20/11 08/10/19 Fish Oil 2 tab DAILY 02/08/18 08/10/19 loratadine 10 mg tablet 10 mg PO DAILY 06/27/19 08/10/19 Previous Rx's Medication Instructions Recorded azelastine 137 mcg (0.1 %) nasal 1 spray NASAL BID #30 ml 08/10/19 spray aerosol Allergies Allergy/AdvReac Type Severity Reaction Status Date / Time amoxicillin [AMOXICILLIN] Allergy Mild Diarrhea/Vo Verified 02/09/20 12:27 miting Review of Systems <CALIN BluntP - Last Filed: 02/09/20 13:34> Review of Systems Narrative: General: Denies fever, (+) chills, fatigue, malaise, sweats. HEENT: Denies sinus pain, ear pain, sore throat, difficulty swallowing, dizziness, (+) nasal congestion. Respiratory: Denies dyspnea, cough, wheezing, hemoptysis, sputum. Cardiovascular: Denies chest pain, palpitations, orthopnea, edema. Gastrointestinal: Denies (+) nausea, vomiting, abdominal pain, diarrhea, constipation, melena. : Denies dysuria, frequency, incontinence, hematuria, urinary retention. Musculoskeletal: Denies weakness, joint pain or bony pain. Skin: Denies rash, skin lesions, or other. Neurologic: Denies weakness, (+) headache, numbness, change in speech, confusion, seizures, incoordination. Psychiatric: No concerning psychosocial issues. 12-point review of systems is negative except for those stated above. Patient History <LÓPEZ Blunt - Last Filed: 02/09/20 13:34> Medical History (Updated 02/09/20 @ 13:31 by LÓPEZ Blunt) Asthma Nasal obstruction Surgical History No history of previous surgery Family History Mother Hyperlipidemia IBS (irritable bowel syndrome) Brother Obese Social History household members: family and other Smoking Status: Never smoker alcohol intake: current (2 drinks per week ) substance use type: does not use Smoking Status: Never smoker alcohol intake frequency: a few times a week Substance Use Type: does not use Exam <LÓPEZ Blunt - Last Filed: 02/09/20 13:34> Narrative Exam Narrative: GEN: Alert, oriented x 3, well appearing and nourished, and in no acute distress. Head: Normal cephalic, atraumatic. No scalp or temporal tenderness, palpable mass or rash. EYES: Pupils are equal, round, and reactive to light and accommodation. Extraocular muscles are intact bilaterally. There is no subconjunctival hemorrhage, exudate and sclera non-icteric. ENT: Hearing grossly intact. Nose without bleeding, purulent discharge or deviation. Facial sinuses nontender to palpate. Mucous membrane moist, no mucosal lesion. Throat without erythema, tonsillar hypertrophy or exudate. Uvula in midline, airway patent. Neck: Trachea in midline. No JVD, non-tender without lymphadenopathy. No masses or thyroid megaly. Supple, non-tender and no meningeal signs. CARDIAC: Normal regular rate and rhythm without murmurs, gallops, or rubs. No chest wall tenderness. No peripheral edema, cyanosis or pallor. Capillary refill is less than 2 seconds. RESPIRATORY: Lungs are clear to auscultate bilaterally. No cough, wheezes, rales, or rhonchi. No stridor, respiratory distress, increase work of breathing, or accessary muscle used. ABD: Abdomen soft, nontender and non-distended. No guarding or rebound tenderness to palpate. Bowel sounds are normal in all 4 quadrants. There is no palpable masses or organomegaly. EXT: Full painless ROM of all extremities with no loss of sensation, strength, effusion or edema. SKIN: Warm, dry, normal color for patient. No erythema, lesions or rash over visible areas. BACK: Nontender without deformity or crepitance. No flank tenderness. NEUROLOGICAL: Alert and oriented to place, time and person. Sensation and motor function intact bilaterally. No facial droops, dysphasia. PSYCHIATRIC: Good judgement and reason, without hallucinations, abnormal affect or abnormal behaviors during the examination. Patient is not suicidal. Initial Vital Signs Initial Vital Signs: Vital Signs Temperature 98.3 F 02/09/20 12:20 Pulse Rate 66 02/09/20 12:20 Respiratory Rate 14 02/09/20 12:20 Blood Pressure 145/67 H 02/09/20 12:20 Pulse Oximetry 100 02/09/20 12:20 <Joanna Ruiz DO - Last Filed: 02/09/20 19:01> Initial Vital Signs Initial Vital Signs: Vital Signs Temperature 98.3 F 02/09/20 12:20 Pulse Rate 66 02/09/20 12:20 Respiratory Rate 14 02/09/20 12:20 Blood Pressure 145/67 H 02/09/20 12:20 Pulse Oximetry 100 02/09/20 12:20 Scores <LÓPEZ Blunt - Last Filed: 02/09/20 13:34> GCS [place] coma scale eye opening: Spontaneous Jayden coma scale verbal response: Orientated [place]den coma scale motor response: Obey commands Jayden coma scale total score: 15 qSOFA Altered Mental Status (GCS <15): No Respiratory rate greater than/equal to 22: No Systolic blood pressure less than or equal to 100: No qSOFA Total: 0 0-1 Not High Risk 1-3 High risk Course <LÓPEZ Blunt - Last Filed: 02/09/20 13:34> Orders Ordered: ED Orders 02/09/20 12:33 COVID19 Stat Vital Signs Vital signs: Vital Signs - 8 hr 02/09/20 12:20 12/24/20 13:46 Temperature 98.3 F Pulse Rate 66 71 Respiratory Rate 14 Blood Pressure 145/67 H 134/65 Pulse Oximetry 100 100 <Joanna Ruiz DO - Last Filed: 02/09/20 19:01> Orders Ordered: ED Orders 02/09/20 12:33 COVID19 Stat Vital Signs Vital signs: Vital Signs - 8 hr 02/09/20 12:20 02/09/20 13:46 Temperature 98.3 F Pulse Rate 66 71 Respiratory Rate 14 Blood Pressure 145/67 H 134/65 Pulse Oximetry 100 100 MDM - URI/Sore Throat <Duane DonLÓPEZ reeves - Last Filed: 02/09/20 13:34> Differential Diagnosis Differential diagnosis: Likely upper respiratory infection, viral infection and other (COVID-19) Medical Records Attestation: I reviewed the patient's medical records. Lab Data Attestation: I reviewed the patient's lab results. Labs: Lab Results 02/09/20 Range/Units 12:33 COVID-19 PCR Positive H (Negative) MDM Narrative Medical decision making narrative: This is a 24-year-old male who recently traveled from [place] with chief complain of concerns for COVID illness and mild symptoms since yesterday. Patient reports nausea, chills, nasal congestion send headaches. Patient does not appears to be toxic. Patient's O2 said is 100% in room air without respiratory distress. Patient's lung sounds are clear to auscultate. Patient's COVID test came back as positive. Patient was planning to travel in 4 days back to [place] but advised to call his command and let them know and to star self quarantine for next 14 days with mild to moderate symptoms. He requires to self quarantine up to 20 days if his symptoms become severe. Strict return precautions were discussed with patient and advised to purchase pulse ox monitor if cough for short of breath occurs. Patient verbalized understanding in agreement with the treatment plan. Advised to take [id number] Tylenol and or Motrin as needed for aches and fevers. <Joanna Ruiz DO - Last Filed: 02/09/20 19:01> Lab Data Labs: Lab Results 02/09/20 Range/Units 12:33 COVID-19 PCR Positive H (Negative) Discharge Plan Departure Patient Disposition: Home Clinical Impression: COVID-19 Instructions: DI for COVID-19 (Suspected or Confirmed ) Activity Restrictions/Additional Instructions: CDC Guidelines for home isolation: You must quarantine for 14 days. Please contact your command and let them know. - Stay away from others - Limit contact with pets and animals: If you must care for a pet, wash your hands before and after interacting with them - Wear a mask if you are sick - Cover your mouth and nose with a tissue when you cough or sneeze. Dispose of tissues in a lined trash can and wash your hands immediately with soap and water for at least 20 seconds. If soap and water are not available, clean hands with alcohol-based hand property management bookkeeper that contains at least 60% alcohol. - Clean your hands often with soap and water for at least 20 seconds - Avoid touching your eyes, nose and mouth with unwashed hands - Do not share dishes, drinking glasses, cups, eating utensils, towels, or bedding with other people in your home. After using these items, wash them thoroughly with soap and water or put in the negative assembler. - Clean high-touch surfaces in your isolation area (?sick room? and bathroom) every day; let a caregiver clean and disinfect high-touch surfaces in other areas of the home. Clean the area or item with soap and water or another detergent if it is dirty. Then, use a household disinfectant. Seek medical attention, but call first: - Seek medical care right away if your illness is worsening (for example, if you have difficulty breathing). - Call your doctor before going in: Before going to the doctor?s office or emergency room, call ahead and tell them your symptoms. They will tell you what to do. - If possible, put on a facemask before you enter the building. If you can?t put on a facemask, try to keep a safe distance from other people (at least 6 feet away). This will help protect the people in the office or waiting room. - Follow care instructions from your healthcare provider and local health department: Your local health authorities will give instructions on checking your symptoms and reporting information. Emergency warning signs for COVID-19: - Difficulty breathing or shortness of breath - Persistent pain or pressure in the chest - New confusion or inability to arouse - Bluish lips or face Prescriptions: No Action MULTIVITAMIN (FAMILY TABS) 1 tab PO DAILY Qty: 0 RF: 0 azelastine 137 mcg (0.1 %) aerosol,spray 1 spray NASAL BID Qty: 30 RF: 1 loratadine [Claritin] 10 mg tablet 10 mg PO DAILY RF: 0 Fish Oil capsule 2 tab DAILY RF: 0 Referrals: [facility] [Outside] <Joanna Ruiz DO - Last Filed: 02/09/20 19:01> Cosign ED Attending Cosignature Attestation: I was immediately available in the department for consultation. Documentation has been reviewed.
[2020-02-09 13:08] LABS: COVID19 -Nasal RAPID POSITIVE (Negative)
[2020-02-09 13:46] VITALS: BP 134/65; PULSE 71; O2SAT 100
== END 2020-02-09 13:47 | disposition home or self-care (01) ==
PROVIDERS: Emergency Medicine; Emergency Provider Nurse Practitioner Family; PCP Family Medicine
DX: U07.1 COVID-19 (principal); R11.0 Nausea; R51.9 Headache, unspecified; R09.81 Nasal congestion; J45.909 Unspecified asthma, uncomplicated
CPT/HCPCS: 87635; 99281; 99282

== ENCOUNTER → 2020-02-16 14:05 | Outpatient (ROUT) | payer OTHER, SELFPAY ==
[2018-08-18 10:48] VITALS: BMI 23.0
[2020-02-16 14:22] LABS: COVID19 -Nasal RAPID POSITIVE (Negative)
== END ==
PROVIDERS: PCP Family Medicine; Visit Provider Family Medicine
DX: Z20.828 Contact with and (suspected) exposure to other viral communicable diseases (principal)
CPT/HCPCS: 87635